=== PATIENT | female | born 1950 | race Caucasian/White ===

== ENCOUNTER 2017-01-05 05:38 | Day surgery (SDC) | payer OTHER ==
[2017-01-04 09:31] VITALS: BMI 27.8
[2017-01-05] VITALS (10 sets, daily range): BP systolic 131–166; BP diastolic 68–100; PULSE 52–66; RESP 14–23; Ht 154.9 cm; Wt 69.8 kg
[~2017-01-05] VITALS: Ht 154.9 cm; Wt 69.8 kg
[~2017-01-05 05:38] MED LIST: CEFAZOLIN 2 GM/50 ML (PMX) 50 ML IVPB SCH
[2017-01-05] MEDS ORDERED: POLYMYXIN/BACITRACIN 1L IRRIG ONE (06:54)
[2017-01-05] MEDS ORDERED: BUPIVACAINE 0.5% (SDV) 30 ML INJ ONE (06:54)
[2017-01-05] MEDS ORDERED: CEFAZOLIN 1 GM INJ ONE (07:00)
[2017-01-05] MEDS ORDERED: LIDOCAINE 2% (SDV) 5 ML INJ ONE (07:00)
[2017-01-05] MEDS ORDERED: LIDOCAINE 2% (MDV) 20 ML INJ ONE (07:28)
[2017-01-05] MEDS ORDERED: FENTAnyl 50 MCG/ML VIAL ONE (07:30)
[2017-01-05] MEDS ORDERED: PROPOFOL 20 ML ONE (07:30)
[2017-01-05] MEDS ORDERED: MIDAZOLAM 1 MG/ML 2 ML INJ ONE (07:30)
--- NOTE | 2017-01-05 07:33 | HPN ---
Date/Time of Note Date/Time of Note DATE: 01/05/17 TIME: 07:33 Interval H&P Admission Note Pt. seen H&P reviewed: No system changes BING ORDONEZ DPM Jan 05, 2017 07:33
[2017-01-05] MEDS ORDERED: HYDROmorphONE (0.2 MG/ML) 10ML SYG IV PRN ×2 (08:30)
[2017-01-05] MEDS ORDERED: ONDANSETRON 4 MG INJ IV PRN (08:30)
[2017-01-05] MEDS ORDERED: METOCLOPRAMIDE 10 MG INJ IV PRN (08:30)
[2017-01-05] MEDS ORDERED: MEPERIDINE 25 MG INJ IV PRN (08:30)
[2017-01-05] MEDS ORDERED: FENTAnyl 50 MCG/ML VIAL IV PRN (08:30)
[2017-01-05] MEDS ORDERED: DIPHENHYDRAMINE 50 MG INJ IV PRN (08:30)
--- NOTE | 2017-01-05 08:52 | OPR ---
Date/Time of Note Date/Time of Note DATE: 01/05/17 TIME: 08:47 Operative Report Procedure Date: Jan 05, 2017 Preoperative Diagnosis Pre-dislocation syndrome left second MPJ Left second toe deviation Left foot pain Postoperative Diagnosis Pre-dislocation syndrome left second MPJ Left second toe deviation Left foot pain Operation Performed Surgical repair of left second metatarsophalangeal joint with pre-dislocation syndrome Extensor digitorum longus tendon lengthening left second toe Left second metatarsophalangeal joint release Surgeon: BING ORDONEZ DPM Anesthesia: MAC Estimated Blood Loss: minimal Specimens Joint capsule left second MPJ Complications: None Pt Condition Post Procedure: stable Disposition: PACU Indications This is a pleasant 66-year-old female patient who is been suffering with left second toe pain since after her previous hammertoe surgery which caused the second toe to override the great toe. She has tried and failed conservative treatment with shoe modification and activity modification. She says that she has tried to tape her toe down with no success. She says that she continues to have her left second toe over right big toe and it is causing significant pain and discomfort with most of her activities and most of her shoes. Recommendation was made for repair of pre-dislocation syndrome of the left second metatarsal phalangeal joint with possible extensor digitorum longus tendon lengthening. Risks and complications of this type of surgery was discussed with patient in great detail. Risks and complications include, but are not limited to, postop pain, postoperative infection, chronic pain and disability, failure of surgery to correct the problem, need for additional surgical procedures, wound infection, allergic reactions to suture material, deep venous thrombosis, limb loss, loss of life. Patient seems to understand the risks and complications discussed and agrees to the procedure. An informed consent was signed, obtained and placed in the chart. No guarantee or warranty was given or implied as to the outcome of the procedure either in verbal and written form. Operative\Procedure Findings Subluxation of the second metatarsal phalangeal joint of the left foot with the second toe overlying the hallux. Tight extensor digitorum longus tendon. Procedure Description Patient was seen in the preoperative area and proposed surgery was discussed in great detail. Opportunity was given to patient to ask questions and all questions were answered. An informed consent was then obtained, signed and placed in the chart. The patient was then taken to the operating room and was placed on the operating table in the supine position. Patient was given general anesthesia. Pneumatic ankle tourniquet was applied to the left ankle. A timeout was called by the circulating nurse. The left foot was then scrubbed, prepped and draped in the usual aseptic manner. An Esmarch bandage was utilized to exsanguinate the left foot and the pneumatic ankle tourniquet was inflated to 250 mmHg pressure. Attention was directed to the dorsal aspect of the left second metatarsophalangeal joint. I made a 4 cm incision encompassing the MPJ and the proximal interphalangeal joint using a #15 blade. Bleeders were cauterized as necessary. Dissection was deepened through the subcutaneous layer down to the joint capsule using sharp and blunt dissection with care being taken to identify vital neurovascular structures. I dissected the MPJ lateral aspect and found attenuation of the lateral capsule of the second metatarsophalangeal joint. A wedge of capsule was sharply excised using a #15 blade. Next, a dorsal capsulotomy was made and a McGlamry elevator was inserted and adhesions of the second metatarsophalangeal joint was released. Next, tendon lengthening was done of the extensor tendon. Using 3-0 Vicryl suture, I was able to reduce the medial deviation of the toe by repairing the lateral joint capsule. Next, I extended the tendon and sutured the extensor tendon in its new position using 4-0 Vicryl suture. The dorsal capsule incision was left open in order to facilitate lowering of the second toe. Next, the wound was flushed with copious amounts of sterile normal saline. I then proceeded to close the subcutaneous layer using 4-0 Vicryl and the skin was closed using 5-0 Monocryl in subcuticular stitch pattern. Steri-Strips were applied. Post op injection of 0.5% Marcaine plain was given. Sterile dressings applied and the second toe was splinted in the erect and slightly plantarflexed position. The pneumatic ankle tourniquet was deflated at this time and prompt hyperemic response was noted to digits of the left foot. The patient tolerated procedure and anesthesia well. She was transferred to the recovery room with vital signs stable and vascular status intact to the left foot. Patient will be discharged home after postoperative monitoring. The postop shoe will be given to patient along with crutches. Postoperative orders were written. Patient will be seen in 1 week in my office. BING ORDONEZ DPM Jan 05, 2017 08:52
[2017-01-05] MEDS ORDERED: HYDROCODONE/APAP (10/325) TAB PO PRN (10:00)
--- NOTE | 2017-01-05 10:39 | RADRPT ---
PROCEDURE: XR Left Foot. CLINICAL INDICATION: SP LT 2ND TOE REPAIR PREDISLOCATION SYNDROME TECHNIQUE: AP, lateral and oblique views of the left foot was obtained. The images were reviewed on a PACS workstation. COMPARISON: Left foot 04/14/2016. FINDINGS: The left second PIP joint space is fused. There is a and lag screw embedded in the distal metadiaph ysis of the left first metatarsal bone. IMPRESSION: 1. Phalanx in the distal metadiaphysis of the first metatarsal. 2. Fusion of the left second DIP joint space. RPTAT:AAJJ Physician Chrissy Date Time Electronically viewed and signed by Alejandro Gonsales Physician on 01/05/2017 10:39 MAGAN/
== END 2017-01-05 12:20 | disposition home or self-care (01) ==
LOC: SDS 05:38
PROVIDERS: ATTEND Podiatrist Foot & Ankle Surgery
DX: S93.125A Dislocation of metatarsophalangeal joint of left lesser toe(s), initial encounter (principal); X58.XXXA Exposure to other specified factors, initial encounter; Y92.89 Other specified places as the place of occurrence of the external cause; E66.9 Obesity, unspecified; Z68.29 Body mass index [BMI] 29.0-29.9, adult
CPT/HCPCS: 88304; 97161; J0690; J2250; J3010

== ENCOUNTER 2017-05-25 09:49 | Day surgery (SDC) | payer OTHER ==
--- NOTE | 2017-05-24 20:07 | HP ---
DATE OF ADMISSION: 05/25/2017 HISTORY OF PRESENT ILLNESS: A 66-year-old female patient with a long history of chronic sinusitis approximately 1 year, treated with multiple courses of antibiotics, as well as antihistamines and decongestants without relieve. Sinus CAT scan taken March 2017 demonstrates extensive obstructive ngo sinusitis with underlying polyposis, severe left side. The patient has been unresponsive to medication, now admitted to the hospital for corrective nasal sinus surgery. PAST MEDICAL HISTORY/ALLERGIES/DAILY MEDS/MEDICAL CONDITIONS/PRIOR SURGERY/CLOTTING DISORDERS/FAMILY HISTORY/REVIEW OF SYSTEMS: Negative. HABITS: Alcohol none, tobacco 1 pack a day, and recreational drugs none. PHYSICAL EXAMINATION: GENERAL APPEARANCE: Well-developed, well-nourished female patient in no acute distress. HEENT: Head normocephalic. No masses or deformities. Ear and tympanic membranes normal. Septum is obstructed and deviated with polyposis and mucopus on the left side. Oropharynx clear. NECK: No masses or adenopathy. CHEST: Clear to P and A. CARDIAC: Regular sinus rhythm without murmur. ABDOMEN: Soft. Bowel sounds normal. No masses or megaly. EXTREMITIES: Full range of motion without deformity. NEUROLOGIC: Psychologic. PELVIC AND RECTAL: Not done. IMPRESSION: Chronic left maxillary sinusitis with ngo sinusitis, septal deviation, turbinate hypertrophy, and polyposis. RECOMMENDATIONS: Admit for surgery. Dictated By: Justin Aguilera MD /[email or web address] /Document#: [id number]
[2017-05-25] VITALS (16 sets, daily range): BP systolic 125–167; BP diastolic 66–81; PULSE 42–74; RESP 15–35; Ht 160 cm; Wt 65.2 kg
[~2017-05-25] VITALS: Ht 160 cm; Wt 65.2 kg
[~2017-05-25 09:49] MED LIST changes: -CEFAZOLIN 2 GM/50 ML (PMX) 50 ML IVPB SCH; +GLYCOPYRROLATE 0.4 MG INJ ONE; +NEOSTIGMINE 3 MG/3 ML SYRINGE ONE
[2017-05-25] MEDS ORDERED: LIDOCAINE 2%/EPI 30 ML INJ ONE (11:01)
[2017-05-25] MEDS ORDERED: COCAINE 4% 4 ML TOP ONE (11:01)
[2017-05-25] MEDS ORDERED: BACITRACIN/POLYMYXIN 28.35 GM OINT TOP ONE (11:02)
[2017-05-25] MEDS ORDERED: LIDOCAINE 2% (SDV) 5 ML INJ ONE (11:12)
[2017-05-25] MEDS ORDERED: ROCURONIUM 50 MG INJ ONE (11:12)
[2017-05-25] MEDS ORDERED: PROPOFOL 100 ML ONE (11:12)
[2017-05-25] MEDS ORDERED: FENTAnyl 50 MCG/ML VIAL ONE ×2 (11:13→11:33)
[2017-05-25] MEDS ORDERED: BUPIVACAINE 0.5%/EPI (SDV) 10 ML INJ ONE (11:27)
[2017-05-25] MEDS ORDERED: ONDANSETRON 4 MG INJ IV PRN (11:30)
[2017-05-25] MEDS ORDERED: KETOROLAC 30 MG INJ IV PRN (11:30)
[2017-05-25] MEDS ORDERED: DIPHENHYDRAMINE 50 MG INJ IV PRN (11:30)
[2017-05-25] MEDS ORDERED: EPHEDrine SULFATE 50 MG/5 ML SYG IV PRN (11:30)
[2017-05-25] MEDS ORDERED: LABETALOL HCL 20MG INJ IV PRN (11:30)
[2017-05-25] MEDS ORDERED: HYDROmorphONE (0.2 MG/ML) 10ML SYG IV PRN ×3 (11:30)
[2017-05-25] MEDS ORDERED: FENTAnyl 50 MCG/ML VIAL IV PRN ×3 (11:30)
[2017-05-25] MEDS ORDERED: OXYCODONE/ACETAMINOPHEN (5/325) TAB PO PRN ×2 (11:30)
[2017-05-25] MEDS ORDERED: DEXAMETHASONE 4 MG/ML 1 ML INJ ONE (11:35)
[2017-05-25] MEDS ORDERED: ONDANSETRON 4 MG INJ ONE (12:10)
--- NOTE | 2017-05-25 12:38 | SIPON ---
Date/Time of Note Date/Time of Note DATE: 05/25/17 TIME: 12:35 Operative Report Preoperative Diagnosis chronic inusitis Postoperative Diagnosis same Operation/Procedure Performed ESS Anesthesia Type: general Estimated Blood Loss: 0 - 10 ml's Transfusion Required: no Specimens to path Grafts/Implants none Complications: no RADHA STORM MD May 25, 2017 12:38
[2017-05-25] MEDS: hydrALAzine 20 MG INJ IV PRN ×2 (13:30→13:49)
--- NOTE | 2017-05-25 16:21 | OPR ---
DATE OF OPERATION: 05/25/2017 PREOPERATIVE DIAGNOSES: 1. Septal deviation. 2. Turbinate. 3. Hypertrophy. 4. Polyposis. 5. Chronic sinusitis. POSTOPERATIVE DIAGNOSES: 1. Septal deviation. 2. Turbinate. 3. Hypertrophy. 4. Polyposis. 5. Chronic sinusitis. PROCEDURES PERFORMED: Septoplasty, turbinate reduction, left nasal polypectomy, left endoscopic maxillary sinus surgery, left endoscopic anterior posterior ethmoid endoscopic sinus surgery, left endoscopic frontal sinus surgery, left endoscopic sphenoid sinus surgery. OPERATIVE PROCEDURE: The patient was brought to the operating room under parental sedation, general oral endotracheal anesthesia, with the patient in the supine position. Sterile sheets and drapes applied. Nose anesthetized with xylocaine 2 percent epinephrine 1 to 200,000 and with topical cottonoid cocaine. The left hemitransfixion incision was made. Septal flaps were elevated bilaterally exposing the quadrilateral cartilage which was deflected to the left. The cartilage was freed from the crest of the pre maxilla and from the bony cartilaginous junction and then vertically [id number] cut to correct cartilaginous deviation. The vomerine spur on the left was mobilized with a Walsham forceps and brought to the midline. The septal compartment was then suctioned and the incision closed with interrupted 4 0 chromic. The inferior turbinate bones were then lightly crushed and outfractured. The left nasal polypectomy was then performed with forceps. Following this, the middle turbinate was medialized. Zero and 30 degree telescopes were utilized to examine the middle meatus. Extensive inspissated dried harden mucopus was encountered throughout. This was consistent with a mucopyocele of the ethmoid, maxillary, frontal, and sphenoid sinus regions. The mucopyocele was removed with forceps, suction, and copious irrigation. Following this, the dissection was carried posteriorly with removal of polyps from the anterior and posterior ethmoid sinuses, the sphenoid sinus, and the nasal frontal recess. The ostium of the maxillary sinus on the left was encountered and opened widely with backbiting forceps. Further mucopus was encountered at this time, which was sent for aerobic and anaerobic cultures. The ostium was then opened further with the backbiting forceps, and the left maxillary sinus was irrigated and suctioned to complete the procedure. The nose was then packed with bacitracin impregnated nasal pore sponge, a drip pad was applied. The patient awakened and extubated in the operating room. Returned to recovery in excellent condition. ESTIMATED BLOOD LOSS: Five to 10 mL. COMPLICATIONS: None. Dictated By: Justin Aguilera MD /[email or web address] /Document#: [id number]
== END 2017-05-25 15:16 | disposition home or self-care (01) ==
LOC: SDS 09:49
PROVIDERS: ATTEND Otolaryngology Otolaryngology/Facial Plastic Surgery
DX: J34.2 Deviated nasal septum (principal); J34.3 Hypertrophy of nasal turbinates; J32.9 Chronic sinusitis, unspecified; J33.9 Nasal polyp, unspecified; F17.200 Nicotine dependence, unspecified, uncomplicated
CPT/HCPCS: 30520; 30930; 31255; 31256; 31276; 31287; 87070; 87075; 88304; J0360; J1100; J2405; J2710; J3010; Z7512; Z7610